=== PATIENT | female | born 1945 | race Caucasian/White ===

== ENCOUNTER → 2018-08-12 | Outpatient (CLI) | payer MEDICARE, BC | LOC: COL.RAD 09:45 | DX: K75.81 Nonalcoholic steatohepatitis (NASH) (principal); Z83.49 Family history of other endocrine, nutritional and metabolic diseases; Z80.0 Family history of malignant neoplasm of digestive organs ==

== ENCOUNTER 2020-01-04 17:49 | Observation (INO) | payer MEDICARE, BC ==
[~2020-01-04] VITALS: Ht 157.5 cm; Wt 77.5 kg
[2020-01-04 19:08] LABS: BASO # 0.1 (0.0-0.2); BASO % 0.7 % (0.0-2.0); EOS # 0.1 (0.0-0.7); EOS % 1.1 % (0-4.0); GRAN # 9.1 (1.4-6.5); GRAN % 81.6 % (42.2-75.2); LYMPH # 1.1 (1.2-3.4); LYMPH % 9.7 % (20.0-51.0); MEAN CELL VOLUME 90 fl (80.0-100.0); MEAN CORPUSCULAR HEMOGLOBIN 31 pg (27.0-31.0); MEAN CORPUSCULAR HGB CONC 34 g/dl (33.0-37.0); MEAN PLATELET VOLUME 9.5 fl (7.4-10.4); MONO # 0.7 (0.1-0.6); MONO % 6.3 % (1.7-9.3); PLATELET COUNT 262 K/mm3 (130-400); RED BLOOD COUNT 5.24 M/mm3 (4.10-5.30); REDCELL DISTRIBUTION WIDTH-CV 12.6 % (11.5-14.5)
[2020-01-04 19:59] LABS: ALBUMIN 4.2 gm/dL (3.5-5.0); BILIRUBIN,TOTAL 0.8 mg/dL (0.0-1.0); C-REACTIVE PROTEIN 3.8 mg/dL (0.0-0.9); CALCIUM 9.4 mg/dL (8.4-10.2); CREATININE, serum 0.85 (0.52-1.25); POTASSIUM 3.7 mmol/L (3.4-5.0); TOTAL PROTEIN 7.8 gm/dL (6.4-8.2)
[2020-01-04] MEDS ORDERED: SYNTHROID0.075 MG/T (21:45)
[2020-01-04] MEDS ORDERED: PRILOSEC 20MG20 MG PO (21:45)
[2020-01-04] MEDS ORDERED: FOSAMAX 70MG TA70 MG PO (21:45)
[2020-01-04 22:07] VITALS: BP 126/65; PULSE 76; TEMP 98.6
[2020-01-04 23:38] VITALS: BP 115/58; PULSE 74; TEMP 98.2
[2020-01-05] VITALS (11 sets, daily range): BP systolic 117–139; BP diastolic 49–65; PULSE 62–86; TEMP 97.8–98.6
[2020-01-05 05:01] LABS: COLLECTION METHOD CLEAN CATCH
[2020-01-05 05:18] LABS: PH 5 (5-8); URINE APPEARANCE Hazy; URINE BILIRUBIN Negative (NEGATIVE); URINE BLOOD Negative (NEGATIVE); URINE COLOR Yellow; URINE GLUCOSE Negative (NEGATIVE); URINE KETONE 1+ (NEGATIVE); URINE LEUKOCYTE ESTERASE 2+ (NEGATIVE); URINE NITRATE Negative (NEGATIVE); URINE PROTEIN(semi-quant) Negative (NEGATIVE); URINE UROBILINOGEN Negative (NEGATIVE)
[2020-01-05 05:19] LABS: URINE BACTERIA Occasional /hpf; URINE RBC 0-2 /hpf
== END 2020-01-05 21:35 | disposition home or self-care (01) ==
LOC: COL.ER 17:49 → SURG 20:49
PROVIDERS: Nurse Practitioner; ADMIT Surgery
DX: K80.12 Calculus of gallbladder with acute and chronic cholecystitis without obstruction (principal); Z91.041 Radiographic dye allergy status; Z88.0 Allergy status to penicillin
CPT/HCPCS: J0330; J0696; J1100; J1170; J1885; J2405; J2704; J3010; J7030; J7120

== ENCOUNTER 2020-01-15 18:03 | Inpatient (IN) | payer MEDICARE, BC ==
[~2020-01-15] VITALS: Ht 154.9 cm; Wt 73.4 kg
[~2020-01-15 18:03] MED LIST: FOSAMAX 70MG TA70 MG PO; PRILOSEC 20MG20 MG PO; SYNTHROID0.075 MG/T PO
[2020-01-15 19:11] LABS: BASO # 0.1 (0.0-0.2); BASO % 0.5 % (0.0-2.0); EOS % 0.3 % (0-4.0); GRAN # 12.4 (1.4-6.5); GRAN % 85.8 % (42.2-75.2); HEMOGLOBIN 15.2 g/dl (12.5-16.0); MEAN CELL VOLUME 90 fl (80.0-100.0); MEAN CORPUSCULAR HEMOGLOBIN 30 pg (27.0-31.0); MEAN CORPUSCULAR HGB CONC 34 g/dl (33.0-37.0); MEAN PLATELET VOLUME 9.7 fl (7.4-10.4); MONO # 0.8 (0.1-0.6); MONO % 5.8 % (1.7-9.3); PLATELET COUNT 220 K/mm3 (130-400); REDCELL DISTRIBUTION WIDTH-CV 12.6 % (11.5-14.5)
[2020-01-15] MEDS ORDERED: ULTRAM 50MG TAB50 MG PO (19:21)
[2020-01-15 19:45] LABS: ALBUMIN 4.1 gm/dL (3.5-5.0); BILIRUBIN,TOTAL 1.2 mg/dL (0.0-1.0); C-REACTIVE PROTEIN 7.5 mg/dL (0.0-0.9); CALCIUM 8.9 mg/dL (8.4-10.2); CREATININE, serum 0.71 (0.52-1.25); POTASSIUM 3.6 mmol/L (3.4-5.0); TOTAL PROTEIN 7.5 gm/dL (6.4-8.2)
--- NOTE | 2020-01-15 22:20 | NUR ---
Report received from CAREY Capellan in ED. To room 347 via [facility]. Ambulated to bathroom independently-UA collected. Admission assessment complete. A&Ox3. VS have been stable. Denies pain/nausea/shortness of breath. Oriented to room/policy. Plan of care discussed for heparin/IV fluids/PRN meds. Verbalizes understanding/denies questions/concerns. Arrived with heparin infusing at 13mls/hr to left AC 20guage. Call light in reach. Will monitor.
[2020-01-15] MEDS ORDERED: VITAMIN D31000 I1 PO (22:33)
--- NOTE | 2020-01-15 23:00 | NUR ---
IV placed to right wrist-22g-1 attempt. NS@125ml/hr per dr order. Heparin infusing to right AC 20guage at 13ml/hr.
[2020-01-15 23:26] VITALS: BP 127/68; PULSE 74; TEMP 97.6
[2020-01-15 23:28] VITALS: BP 127/68; PULSE 90; TEMP 97.6
[2020-01-15 23:29] LABS: MAGNESIUM 1.9 mg/dL (1.6-2.3)
[2020-01-15 23:30] LABS: INR 1.1 (0.8-3.0); PROTHROMBIN TIME 12.1 SECONDS (9.7-12.8)
[2020-01-15 23:32] LABS: PARTIAL THROMBOPLASTIN TIME 32.5 SECONDS (26.0-37.0)
[2020-01-16] VITALS (7 sets, daily range): BP systolic 102–126; BP diastolic 49–82; PULSE 57–181; TEMP 97.6–98.2
[2020-01-16 01:25] LABS: COLLECTION METHOD CLEAN CATCH
[2020-01-16 01:33] LABS: MUCOUS Present /lpf; PH 6 (5-8); URINE APPEARANCE Hazy; URINE BACTERIA None Seen /hpf; URINE BILIRUBIN Negative (NEGATIVE); URINE BLOOD 1+ (NEGATIVE); URINE COLOR Yellow; URINE GLUCOSE Negative (NEGATIVE); URINE KETONE 1+ (NEGATIVE); URINE LEUKOCYTE ESTERASE 1+ (NEGATIVE); URINE NITRATE Negative (NEGATIVE); URINE PROTEIN(semi-quant) Negative (NEGATIVE); URINE UROBILINOGEN >=4.0 mg/dL (NEGATIVE)
--- NOTE | 2020-01-16 02:05 | NUR ---
Resting eyes closed. NO s/s of pain noted.
[2020-01-16 04:17] LABS: HEMATOCRIT 44.3 % (37.0-47.0); HEMOGLOBIN 15.1 g/dl (12.5-16.0); MEAN CELL VOLUME 90 fl (80.0-100.0); MEAN CORPUSCULAR HEMOGLOBIN 31 pg (27.0-31.0); MEAN CORPUSCULAR HGB CONC 34 g/dl (33.0-37.0); MEAN PLATELET VOLUME 9.8 fl (7.4-10.4); PLATELET COUNT 208 K/mm3 (130-400); RED BLOOD COUNT 4.92 M/mm3 (4.10-5.30); REDCELL DISTRIBUTION WIDTH-CV 12.8 % (11.5-14.5)
[2020-01-16 04:27] LABS: INR 1.4 (0.8-3.0); PROTHROMBIN TIME 15.4 SECONDS (9.7-12.8)
[2020-01-16 04:28] LABS: CALCIUM 8.6 mg/dL (8.4-10.2); CREATININE, serum 0.63 (0.52-1.25)
--- NOTE | 2020-01-16 04:34 | NUR ---
Notified by lab of HepXa result of 1.53. Heparin stopped at this time per protocol. Will place order for HepXa and PTT in two hours.
[2020-01-16 05:22] LABS: BAND 7 % (0-10); LYMPHOCYTE 6 % (20.0-51.0); METAMYELOCYTE 1 % (0-0); NEUTROPHILS 85 % (42.0-75.2); PLATELET ESTIMATE NORMAL (NORMAL)
--- NOTE | 2020-01-16 05:49 | NUR ---
Has not slept at all this shift. States she usually stays up all night and sleeps only during the day. VS remained stable. Heparin currently off due to HepXa of 1.53. Next HepXa due at 0630. Denied pain/shortness of breath/nasuea. NS@75ml/hr to left wrist IV. Denies questions/concerns. Call light in reach. Will monitor.
[2020-01-16 06:55] LABS: PARTIAL THROMBOPLASTIN TIME 94.2 SECONDS (26.0-37.0)
--- NOTE | 2020-01-16 07:34 | NUR ---
Pt assessment complete. Pt is sitting up in bed reading she is A/O x4. Her breathing is even and unlabored on RA. Pt reports "not being able to get a full breath". She denies any pain. No N/V. Hep XA pending for this morning, will adjust following the protocol. No needs at this time. Call light abdelrahman knight.
--- NOTE | 2020-01-16 08:12 | NUR ---
Tele notified this nurse patient's HR 177, pt reading book upon entry. When patient asked if she is having chest pain she states "well some". Vitals attained, HR showing 170-180, BP stable. Valsava maneuvers attempted with patient with no improvement. RT called for EKG. Dr. Roque notified. While RT is at bedside for EKG, pt's HR decreased back into 70-80's with regular rhythm. Tele reports no AFib, occasional PVC's. Will continue to monitor.
--- NOTE | 2020-01-16 15:44 | NUR ---
SW met with patient at her bedside. Patient indicated that she lives in [facility] with her daughter Lissett [phone] and her Daughter in law Reny [phone] as her care support and EMr's. Patient reports she has been independant with ADL's and she does not have a DPOA listed. Patient reports that she currently uses a cane, and that her PCP is Dr. Rogers. Patient reports that she has an upcoming appointment next month. Patient reports that she gets her medications from [facility] with no concerns. Patient was unsure of needs, and Case management did receive a referral for this pt. Patient was provided with HHS compare sheet, and DPOA forms. Sw will follow up.
--- NOTE | 2020-01-16 20:28 | NUR ---
Pt hep xa lab draw was at 0.63 and this was no change needed at this level. Pt heparin is currently infusing at 10ml/hr. Pt is currently sitting up in bed and reading her book. Pt has her call light within reach.
[2020-01-17] VITALS (99 sets, daily range): BP systolic 103–134; BP diastolic 55–78; PULSE 61–167; TEMP 98.1–98.9; O2SAT 93–99
--- NOTE | 2020-01-17 02:35 | NUR ---
Pt hep xa lab was drawn at this time. Pt level was 0.72. With this new level pt heparin infusing rate was lowered by 1ml/hr so pt is currently infusing at 9ml/hr. Pt is currently sleeping in bed and has her call light within reach.
--- NOTE | 2020-01-17 06:18 | NUR ---
Pt currently resting in bed. Pt took her morning medications this morning. Pt has her call light within reach.
[2020-01-17 06:49] LABS: BASO % 0.3 % (0.0-2.0); CALCIUM 8.3 mg/dL (8.4-10.2); CREATININE, serum 0.89 (0.52-1.25); EOS # 0.1 (0.0-0.7); EOS % 0.4 % (0-4.0); GRAN # 10.9 (1.4-6.5); GRAN % 79.4 % (42.2-75.2); HEMATOCRIT 40.1 % (37.0-47.0); HEMOGLOBIN 13.3 g/dl (12.5-16.0); LYMPH # 1.9 (1.2-3.4); LYMPH % 13.7 % (20.0-51.0); MEAN CELL VOLUME 91 fl (80.0-100.0); MEAN CORPUSCULAR HEMOGLOBIN 30 pg (27.0-31.0); MEAN CORPUSCULAR HGB CONC 33 g/dl (33.0-37.0); MEAN PLATELET VOLUME 10.2 fl (7.4-10.4); MONO # 0.8 (0.1-0.6); MONO % 5.5 % (1.7-9.3); PLATELET COUNT 258 K/mm3 (130-400); POTASSIUM 3.1 mmol/L (3.4-5.0); RED BLOOD COUNT 4.42 M/mm3 (4.10-5.30); REDCELL DISTRIBUTION WIDTH-CV 13.2 % (11.5-14.5)
--- NOTE | 2020-01-17 07:18 | NUR ---
TELE CALLED, PATIENT HEART RATE ELEVATED. VITALS TAKEN, BP STABLE, O2 STABLE. HEART RATE TACHYCARDIC IN 160S. AHMET WITH HOSPITALIST SERVICE NOTIFIED. PATIENT DENIES COMPLAINTS SOB,NAUSEA. REPORTS THIS HAS HAPPENED BEFORE. KEITH PRIMARY NURSE AWARE
[2020-01-17 07:24] LABS: INR 1.1 (0.8-3.0); PROTHROMBIN TIME 12.3 SECONDS (9.7-12.8)
--- NOTE | 2020-01-17 07:30 | NUR ---
Recieved call from telemetry stating patient was in a sinus tach rhythm in the 160's sustained. Called hospitalist to report this, patient was resting in bed and denied chest pain, nausea, SOA, or other symptoms. VS were WNL. Awaiting new orders, call light within reach.
[2020-01-17 07:38] LABS: MAGNESIUM 2.2 mg/dL (1.6-2.3)
[2020-01-17 08:10] LABS: TSH w REFLEX 4.23 uIU/mL (0.465-4.680)
--- NOTE | 2020-01-17 18:32 | NUR ---
Patient resting in bed at this time. Patient remains alert and oriented, denies pain or needs, VS have remained WNL. Call lights within reach.
--- NOTE | 2020-01-17 21:13 | NUR ---
Received report from CAREY Gomez.
--- NOTE | 2020-01-17 21:16 | NUR ---
Alerted by telemetry that patient was in Atrial tachycardia with heart rate sustained at 162. Patient then called and stated she felt her heart racing. Dr. Isabel notified and stated to give her 5 minutes and if she didn't convert on her own, then she would transfer to ICU for closer monitoring and a drip. Patient unable to convert on her own and attempted Valsalva maneuver. Dr. Isabel notified of this and ordered to send to ICU. belt and link assembly supervisor notified and room obtained. Awaiting to give report to ICU nurse. Orders received from Dr. Isabel: Amiodarone 150mg bolus over 15 minutes. Then Amiodarone drip to be given at 1mg/minute for 6 hours, then Amiodarone drip 1/2mg/min drip for next 18 hours. ICU nurse to call Dr. Isabel for updated orders upon patient arrival.
--- NOTE | 2020-01-17 21:39 | NUR ---
Patient arrives to ICU room 7 via medical bed. Patient is A&Ox4 and denies any pain or discomfort. Initial vitals are as follows: BP 103/77, P 167, R 18, T 98.6 oral, 92% on room air. Patient arrives with Heparin infusing to the RAC at 900 units/hr or 9 mL/hr; NS is infusing at 75 mL/hr. Per Dr. Isabel's orderes, Amiodarone bolus is initiated at 2149. Maintenance rate of 1mg/min is initiated at approximately 2200. At 2210, patient was noted to be SR in the 60-70s. Dr. Isabel notified at 2220; to continue the drip throughout the night according to prior orders. Some mild bruising noted to the BUE. No other skin issues noted. Patient is provided with call light and the bed is placed in the lowest position. No further needs noted at this time. Will continue to monitor.
[2020-01-18] VITALS (602 sets, daily range): BP systolic 106–136; BP diastolic 58–78; PULSE 54–82; TEMP 98.3–98.9; O2SAT 55–100
[2020-01-18 06:21] LABS: BASO % 0.3 % (0.0-2.0); EOS # 0.2 (0.0-0.7); EOS % 2.7 % (0-4.0); GRAN % 69.3 % (42.2-75.2); HEMOGLOBIN 13.4 g/dl (12.5-16.0); LYMPH # 1.6 (1.2-3.4); LYMPH % 18.3 % (20.0-51.0); MEAN CELL VOLUME 89 fl (80.0-100.0); MEAN CORPUSCULAR HEMOGLOBIN 31 pg (27.0-31.0); MEAN CORPUSCULAR HGB CONC 34 g/dl (33.0-37.0); MEAN PLATELET VOLUME 10.6 fl (7.4-10.4); MONO # 0.8 (0.1-0.6); MONO % 8.7 % (1.7-9.3); PLATELET COUNT 237 K/mm3 (130-400); RED BLOOD COUNT 4.38 M/mm3 (4.10-5.30); REDCELL DISTRIBUTION WIDTH-CV 13.2 % (11.5-14.5)
[2020-01-18 06:28] LABS: INR 1.1 (0.8-3.0)
[2020-01-18 06:33] LABS: ANION GAP 6 mmol/L (7-16); BLOOD UREA NITROGEN 5 mg/dL (7-17); CALCIUM 8.2 mg/dL (8.4-10.2); CARBON DIOXIDE 24 mmol/L (22-30); CHLORIDE 109 mmol/L (98-107); CREATININE, serum 0.62 (0.52-1.25); GLUCOSE 97 mg/dL (74-106); POTASSIUM 3.6 mmol/L (3.4-5.0); SODIUM 139 mmol/L (137-145)
[2020-01-18 06:47] LABS: TROPONIN-I < 0.012 ng/mL (0.000-0.035)
--- NOTE | 2020-01-18 10:48 | NUR ---
Chlorine Operator followed up with patient about Home Health services. Patient's daughter, Lissett is at bedside. Patient and Lissett selected [facility]. SW left a message for Eleni at [facility] then faxed referral. ERIKA will continue to follow.
--- NOTE | 2020-01-18 15:25 | NUR ---
Initial visit; Patient thanked Charge Account Clerk for looking in on her and offering God's blessings and keeping her in Charge Account Clerk's prayers.
--- NOTE | 2020-01-18 19:15 | NUR ---
RECEIVED REPORT FROM CAREY JUDD. PT LYING IN BED READING BOOK, DRINK PROVIDED UPON REQUEST. SEE GTT FLOWSHEET. CALL LIGHT WITHIN REACH. VSS. PT ON RA.
--- NOTE | 2020-01-18 22:25 | NUR ---
PRISCILLA LEAL NOTIFIED OF AMIODARONE IV INFILTRATION AND PT'S STATUS. PT IS STABLE AND ONLY C/O SOME PAIN TO TOUCH AT THIS TIME. PT STATES IT FEELS BETTER JUST HAVING THE IV OUT. PHYSICIAN STATES WILL CALL RN BACK WITH TX PLAN.
[2020-01-19] VITALS (262 sets, daily range): BP systolic 105–142; BP diastolic 58–92; PULSE 54–62; TEMP 98–98.9; O2SAT 71–99
--- NOTE | 2020-01-19 06:15 | NUR ---
RECEIVED REPORT FROM DUTCH IN ICU, PATIENT WAS TRANSFERRED TO THE FLOOR AT 1610. SHE WAS NOTED TO WALK WITH PT SHORTLY AFTER ARRIVAL. PT DID GIVE THE OK FOR PATIENT TO AMBULATE INDEPENDENTLY IN THE ROOM. SHE HAS 2 INT SITES, ONE TO LEFT FOREARM WHICH WAS DISCONTINUED, THE INSERTION SITE WAS NOTED TO BE BRUISED AND SORE. THE OTHER REMAINS IN THE RIGHT AC AND FLUSHES WELL. HER HEART RATE IS REGULAR, LUNGS ARE CLEAR. ON HER RIGHT FOREARM THERE IS NOTED TO BE SOME REDNESS WHICH IS OUTLINED WITH MARKER. AREA IS PINK AND WARM TO TOUCH. THERE IS SWELLING WHERE THE INSERTION SITE, SHE STATES IT IS TENDER TO TOUCH. THERE IS NO SWELLING NOTED TO HER BLES, SHE DENIES HAVING ANY OTHER SKIN ISSUES. IS ON ROOM AIR AND DENIES HAVING ANY SHORTNESS OF BREATH OR PAIN TO THE CALF. IS ALERT AND ORIENTED.
[2020-01-19 07:33] LABS: HEMATOCRIT 40.2 % (37.0-47.0); HEMOGLOBIN 13.9 g/dl (12.5-16.0); MEAN CELL VOLUME 89 fl (80.0-100.0); MEAN CORPUSCULAR HEMOGLOBIN 31 pg (27.0-31.0); MEAN CORPUSCULAR HGB CONC 35 g/dl (33.0-37.0); MEAN PLATELET VOLUME 9.9 fl (7.4-10.4); PLATELET COUNT 263 K/mm3 (130-400); RED BLOOD COUNT 4.51 M/mm3 (4.10-5.30); REDCELL DISTRIBUTION WIDTH-CV 13.1 % (11.5-14.5)
[2020-01-19 07:40] LABS: INR 1.4 (0.8-3.0); PROTHROMBIN TIME 15.6 SECONDS (9.7-12.8)
[2020-01-19 07:43] LABS: CREATININE, serum 0.61 (0.52-1.25); POTASSIUM 3.9 mmol/L (3.4-5.0)
--- NOTE | 2020-01-19 11:06 | NUR ---
Local Flatbed Driver attended clinical rounds with the team. Patient to transfer up to the medical floor. SW requested PT/OT to be ordered. SW will continue to follow.
--- NOTE | 2020-01-19 15:52 | NUR ---
Report called to Dinora PATINO at 1534 Patient transfered from ICU to Medical via wheelchair with belongings in hand at 2872. Patient tolerated well. Able to transfer self to and from wheelchair. IV COLBY.
[2020-01-20 00:40] VITALS: BP 144/62; PULSE 53; TEMP 97.4
--- NOTE | 2020-01-20 01:14 | NUR ---
Pt assessment completed and charted, alert, oriented, roomair. Meds provided as per JUL, tolerated well. Helped her settled on bed, call light on reach. Bed alarm is on. No further needs at this time.
[2020-01-20 04:07] VITALS: BP 107/53; BP 132/61; PULSE 55; PULSE 69; TEMP 97.7; TEMP 98.5
--- NOTE | 2020-01-20 06:13 | NUR ---
Pt had an uneventful night, slept through out the night. Morning meds given as per JUL. Pt is on her bed, call light on reach. No further needs at this time.
[2020-01-20] MEDS ORDERED: ELIQUIS 5MG PO (07:35)
[2020-01-20] MEDS ORDERED: PACERONE200 MG PO (07:37)
[2020-01-20] MEDS ORDERED: PACERONE400 MG PO (07:37)
[2020-01-20] MEDS ORDERED: TOPROL XL 25MG25 MG PO (07:38)
[2020-01-20 07:41] VITALS: BP 120/63; PULSE 53; TEMP 97.9
--- NOTE | 2020-01-20 07:50 | NUR ---
Pt assessment complete. Pt is laying in bed upon entry, she is A/O x4. Her breathing is even and unlabored on RA. Pt reports SOB on exertion, none at rest. No pain at this time. No redness visualized to either leg. Pt up walking with PT at this time. No further needs.
[2020-01-20 07:51] LABS: INR 1.7 (0.8-3.0); PROTHROMBIN TIME 19.6 SECONDS (9.7-12.8)
--- NOTE | 2020-01-20 09:06 | NUR ---
Medical Claims Analyst attended clinical rounds with the team. The patient may require oxygen at discharge. An exercise oximetry was ordered. Will continue to monitor.
--- NOTE | 2020-01-20 09:08 | NUR ---
Follow-up visit; Patient thanked Art Sales Consultant for looking in on her again and wishing her well and God's blessings.
--- NOTE | 2020-01-20 09:15 | NUR ---
Telemetry Tech presented IM form. The patient understood and gave SW permission to sign the form. A copy was provided to the patient and the original was placed in the chart.
--- NOTE | 2020-01-20 09:42 | NUR ---
Reading Efficiency Course Director staffed with RT Don to inform him of the exercise oximetry that is ordered. He will meet with the patient. Will monitor.
--- NOTE | 2020-01-20 09:56 | NUR ---
PATIENT DOES NOT REQUIRE O2 AT REST OR DURING AMBULATION. 98% ON RA.
--- NOTE | 2020-01-20 10:20 | NUR ---
Discharge paperwork and instructions reviewed with patient. All questions answered at this time. IV to RAC dc'd catheter tip intact. Pt wheeled out of facility.
--- NOTE | 2020-01-20 10:21 | NUR ---
The patient to discharge home today, 01/19 with [facility]. PT/OT/Nursing. ERIKA Leahy faxed discharge orders. The patient did not qualify for oxygen at this time. There are no additional needs.
== END 2020-01-20 10:21 | disposition home health service (06) | DRG 176 ==
LOC: COL.ER 18:03 → SURG 21:24 → ICU 01-17 21:48 → MEDICAL 01-19 15:41
PROVIDERS: Emergency Medicine; Nurse Practitioner Family; Physician Assistant; Student in an Organized Health Care Education/Training Program; ADMIT Internal Medicine Pulmonary Disease
DX: I26.99 Other pulmonary embolism without acute cor pulmonale (principal); I47.1 Supraventricular tachycardia; I82.412 Acute embolism and thrombosis of left femoral vein; I82.432 Acute embolism and thrombosis of left popliteal vein; I82.4Z2 Acute embolism and thrombosis of unspecified deep veins of left distal lower extremity; I51.9 Heart disease, unspecified; R79.89 Other specified abnormal findings of blood chemistry; Z90.49 Acquired absence of other specified parts of digestive tract; D72.829 Elevated white blood cell count, unspecified; E88.01 Alpha-1-antitrypsin deficiency; K21.9 Gastro-esophageal reflux disease without esophagitis; E03.9 Hypothyroidism, unspecified; M81.0 Age-related osteoporosis without current pathological fracture
CPT/HCPCS: 99223-AI; 99233-AI; 99239; J0282; J1200; J1644; J2405; J2930; J3010; J3470; J7030; J7060; Q9967

== ENCOUNTER → 2020-09-28 | Outpatient (CLI) | payer MEDICARE, BC ==
[~2020-09-28] MED LIST changes: +ELIQUIS 5MG PO; +PACERONE200 MG PO; +PACERONE400 MG PO; +TOPROL XL 25MG25 MG PO; +ULTRAM 50MG TAB50 MG PO; +VITAMIN D31000 I1 PO
== END ==
LOC: COL.VAS 08-30 13:30
DX: Z13.6 Encounter for screening for cardiovascular disorders (principal); I82.90 Acute embolism and thrombosis of unspecified vein; I08.3 Combined rheumatic disorders of mitral, aortic and tricuspid valves

== ENCOUNTER → 2021-06-04 | Outpatient (CLI) | payer MEDICARE, BC | LOC: COL.RAD 12:54 | DX: R79.89 Other specified abnormal findings of blood chemistry (principal); U09.9 Post COVID-19 condition, unspecified; R91.1 Solitary pulmonary nodule; J12.82 Pneumonia due to coronavirus disease 2019 | CPT/HCPCS: Q9967 ==